=== PATIENT | female | born 1990 | race Caucasian/White ===

== ENCOUNTER 2016-07-15 10:54 | Emergency (ER) | payer MEDICAID ==
[~2016-07-15] VITALS: Ht 157.5 cm; Wt 72.1 kg
[~2016-07-15 10:54] MED LIST: LEVAQUIN750 MG PO
[2016-07-15 13:47] VITALS: BP 117/73
== END 2016-07-15 13:47 | disposition home or self-care (01) ==
LOC: ED 10:54
DX: K08.89 Other specified disorders of teeth and supporting structures (principal)
CPT/HCPCS: J1885; J2001; J3490

== ENCOUNTER 2016-09-07 10:02 | Emergency (ER) | payer MEDICAID ==
[~2016-09-07] VITALS: Ht 162.6 cm; Wt 69.0 kg
[2016-09-07 11:45] LABS: BASOPHIL % 0.4 % (0-2); RED CELL DISTRIBUTION WIDTH 12.7 % (11.5-14.5)
[2016-09-07 11:47] LABS: PLATELET COUNT 125 x10^3mcL (130-400)
[2016-09-07 12:09] LABS: ALBUMIN 4.1 g/dL (3.4-5.0); ALKALINE PHOSPHATASE 58 U/L (46-116); ALT/SGPT 36 U/L (14-59); AMYLASE 71 U/L (25-115); AST/SGOT 26 U/L (15-37); BILIRUBIN TOTAL 0.67 mg/dL (0.20-1.00); CALCIUM 9.2 mg/dL (8.5-10.1); CARBON DIOXIDE 28.6 mmol/L (21-32); CHLORIDE SERUM 105 mmol/L (98-107); CREATININE SERUM 0.6 mg/dL (0.6-1.0); GFR1 > 60 mL/min; GLUCOSE SERUM 90 mg/dL (74-106); LIPASE 157 IU/L (73-393); POTASSIUM SERUM 3.8 mmol/L (3.5-5.1); SODIUM SERUM 140 mmol/L (136-145); TOTAL PROTEIN, SERUM 8.2 g/dL (6.4-8.2)
[2016-09-07 15:40] VITALS: BP 121/74
== END 2016-09-07 15:40 | disposition home or self-care (01) ==
LOC: ED 10:02
PROVIDERS: Emergency Medicine
DX: R10.2 Pelvic and perineal pain (principal); R10.31 Right lower quadrant pain; R10.32 Left lower quadrant pain; R11.0 Nausea; R19.7 Diarrhea, unspecified
CPT/HCPCS: 83880; Q0162

== ENCOUNTER 2016-09-16 23:22 | Emergency (ER) | payer MEDICAID ==
[2016-09-16 23:57] LABS: BASOPHIL % 0.2 % (0-2)
[2016-09-16 23:59] LABS: PLATELET COUNT 112 x10^3mcL (130-400)
[2016-09-17 00:05] LABS: ALBUMIN 3.4 g/dL (3.4-5.0); ALKALINE PHOSPHATASE 57 U/L (46-116); ALT/SGPT 40 U/L (14-59); AST/SGOT 30 U/L (15-37); BILIRUBIN TOTAL 0.4 mg/dL (0.20-1.00); CALCIUM 8.1 mg/dL (8.5-10.1); CARBON DIOXIDE 25.9 mmol/L (21-32); CHLORIDE SERUM 105 mmol/L (98-107); CREATININE SERUM 0.7 mg/dL (0.6-1.0); GFR1 > 60 mL/min; GLUCOSE SERUM 90 mg/dL (74-106); POTASSIUM SERUM 3.6 mmol/L (3.5-5.1); SODIUM SERUM 141 mmol/L (136-145); TOTAL PROTEIN, SERUM 7.3 g/dL (6.4-8.2)
[2016-09-17 03:13] VITALS: BP 99/53
== END 2016-09-17 03:13 | disposition home or self-care (01) ==
LOC: ED 23:22
PROVIDERS: Specialist
DX: R07.89 Other chest pain (principal); D69.6 Thrombocytopenia, unspecified; D64.9 Anemia, unspecified; Z90.49 Acquired absence of other specified parts of digestive tract
CPT/HCPCS: 83880; J1885; J2060; Q0092

== ENCOUNTER 2016-09-20 18:56 | Emergency (ER) | payer MEDICAID ==
[~2016-09-20] VITALS: Ht 165.1 cm; Wt 70.8 kg
[2016-09-20 19:42] LABS: BASOPHIL % 0.4 % (0-2); PLATELET COUNT 110 x10^3mcL (130-400); RED CELL DISTRIBUTION WIDTH 12.8 % (11.5-14.5)
[2016-09-20 19:51] LABS: CALCIUM 8.7 mg/dL (8.5-10.1); CARBON DIOXIDE 25.6 mmol/L (21-32); CHLORIDE SERUM 106 mmol/L (98-107); CREATININE SERUM 0.8 mg/dL (0.6-1.0); GFR1 > 60 mL/min; GLUCOSE SERUM 96 mg/dL (74-106); POTASSIUM SERUM 3.9 mmol/L (3.5-5.1); SODIUM SERUM 141 mmol/L (136-145)
[2016-09-20 19:57] LABS: ALBUMIN 3.4 g/dL (3.4-5.0); ALKALINE PHOSPHATASE 58 U/L (46-116); ALT/SGPT 49 U/L (14-59); AST/SGOT 32 U/L (15-37); BILIRUBIN TOTAL 0.34 mg/dL (0.20-1.00); TOTAL PROTEIN, SERUM 7.6 g/dL (6.4-8.2)
[2016-09-20 20:31] LABS: AMPHETAMINE QUAL UR NONE DETECTED (NEG <=1000)
[2016-09-20 22:52] VITALS: BP 116/86
== END 2016-09-20 22:52 | disposition home or self-care (01) ==
LOC: ED 18:56
PROVIDERS: Emergency Medicine
DX: R07.89 Other chest pain (principal); F43.9 Reaction to severe stress, unspecified; F41.9 Anxiety disorder, unspecified
CPT/HCPCS: 83880; J1885; J2060; J7030; Q0092

== ENCOUNTER 2016-10-04 02:12 | Emergency (ER) | payer MEDICAID ==
[2016-10-04 04:01] LABS: BASOPHIL % 0.4 % (0-2); PLATELET COUNT 161 x10^3mcL (130-400); RED CELL DISTRIBUTION WIDTH 12.4 % (11.5-14.5)
[2016-10-04 04:04] LABS: CALCIUM 8.5 mg/dL (8.5-10.1); CARBON DIOXIDE 24.4 mmol/L (21-32); CHLORIDE SERUM 106 mmol/L (98-107); CREATININE SERUM 0.6 mg/dL (0.6-1.0); GFR1 > 60 mL/min; GLUCOSE SERUM 86 mg/dL (74-106); POTASSIUM SERUM 3.7 mmol/L (3.5-5.1); SODIUM SERUM 140 mmol/L (136-145)
[2016-10-04 04:09] LABS: ALKALINE PHOSPHATASE 62 U/L (46-116); ALT/SGPT 203 U/L (14-59); AST/SGOT 139 U/L (15-37); BILIRUBIN TOTAL 0.43 mg/dL (0.20-1.00); C REACTIVE PROTEIN 4.5 mg/dL (<=0.9); TOTAL PROTEIN, SERUM 7.6 g/dL (6.4-8.2)
[2016-10-04 04:14] LABS: ALBUMIN 3.3 g/dL (3.4-5.0)
[2016-10-04 05:05] VITALS: BP 107/69
== END 2016-10-04 05:05 | disposition home or self-care (01) ==
LOC: ED 02:12
PROVIDERS: Emergency Medicine
DX: M15.9 Polyosteoarthritis, unspecified (principal); R79.82 Elevated C-reactive protein (CRP); F41.9 Anxiety disorder, unspecified; Z79.1 Long term (current) use of non-steroidal anti-inflammatories (NSAID)
CPT/HCPCS: 36415; J1885

== ENCOUNTER 2016-12-17 23:11 | Emergency (ER) | payer MEDICAID ==
[2016-12-18 01:12] VITALS: BP 120/84
== END 2016-12-18 01:12 | disposition home or self-care (01) ==
LOC: ED 23:11
DX: J98.01 Acute bronchospasm (principal); J40 Bronchitis, not specified as acute or chronic; Z90.49 Acquired absence of other specified parts of digestive tract
CPT/HCPCS: J1885; J7512; J7613; J7644; Q0092

== ENCOUNTER 2017-03-25 18:55 | Emergency (ER) | payer MEDICAID ==
[~2017-03-25] VITALS: Ht 154.9 cm; Wt 67.1 kg
[2017-03-25 20:50] LABS: BASOPHIL % 0.4 % (0-2); PLATELET COUNT 131 x10^3mcL (130-400); RED CELL DISTRIBUTION WIDTH 12.5 % (11.5-14.5)
[2017-03-25 21:05] LABS: ALBUMIN 3.4 g/dL (3.4-5.0); ALKALINE PHOSPHATASE 73 U/L (46-116); ALT/SGPT 37 U/L (14-59); AST/SGOT 30 U/L (15-37); BILIRUBIN TOTAL 0.32 mg/dL (0.20-1.00); CALCIUM 8.6 mg/dL (8.5-10.1); CARBON DIOXIDE 29.2 mmol/L (21-32); CHLORIDE SERUM 107 mmol/L (98-107); CREATININE SERUM 0.5 mg/dL (0.6-1.0); GFR1 > 60 mL/min; GLUCOSE SERUM 97 mg/dL (74-106); LIPASE 202 IU/L (73-393); POTASSIUM SERUM 3.4 mmol/L (3.5-5.1); SODIUM SERUM 141 mmol/L (136-145); TOTAL PROTEIN, SERUM 7.3 g/dL (6.4-8.2)
[2017-03-25 21:45] VITALS: BP 121/42
== END 2017-03-25 21:45 | disposition home or self-care (01) ==
LOC: ED 18:55
PROVIDERS: Emergency Medicine Emergency Medical Services
DX: K52.9 Noninfective gastroenteritis and colitis, unspecified (principal)
CPT/HCPCS: J2405; J3490; Q0092

== ENCOUNTER 2017-07-13 06:12 | Inpatient (IN) | payer MEDICAID ==
[~2017-07-13] VITALS: Ht 154.9 cm; Wt 67.3 kg
[2017-07-13 06:29] VITALS: Ht 154.9 cm; Wt 67.3 kg
[2017-07-13 07:37] LABS: BASOPHIL % 0.3 % (0-2); RED CELL DISTRIBUTION WIDTH 12.3 % (11.5-14.5)
[2017-07-13 07:40] LABS: PLATELET COUNT 126 x10^3mcL (130-400)
[2017-07-13 07:47] LABS: CALCIUM 8.6 mg/dL (8.5-10.1); CARBON DIOXIDE 25.2 mmol/L (21-32); CHLORIDE SERUM 107 mmol/L (98-107); CREATININE SERUM 0.5 mg/dL (0.6-1.0); GFR1 > 60 mL/min; GLUCOSE SERUM 89 mg/dL (74-106); POTASSIUM SERUM 4.2 mmol/L (3.5-5.1); SODIUM SERUM 141 mmol/L (136-145)
[2017-07-13 07:52] LABS: ALBUMIN 3.8 g/dL (3.4-5.0); ALKALINE PHOSPHATASE 59 U/L (46-116); ALT/SGPT 29 U/L (14-59); AST/SGOT 24 U/L (15-37); BILIRUBIN TOTAL 0.32 mg/dL (0.20-1.00); TOTAL PROTEIN, SERUM 7.8 g/dL (6.4-8.2)
[2017-07-13 09:05] LABS: microscopic required? YES; urine erythrocyte 1+ (NEGATIVE)
[2017-07-13 09:23] LABS: T3 TOTAL 1.26 ng/mL
[2017-07-13 09:24] LABS: AMPHETAMINE QUAL UR NONE DETECTED (NEG <=1000)
[2017-07-13 09:24] LABS: PHOSPHOROUS 4.1 mg/dL (2.5-4.9)
[2017-07-13 09:26] LABS: CHOLESTEROL/HDL RATIO 2.4
[2017-07-13 09:30] LABS: FREE T4 1.1 ng/dL (0.76-1.46); FREE THYROXINE INDEX 2.7 ug/dL (1.4-4.5); T4(THYROXINE) 9.5 ug/dL (4.7-13.3)
[2017-07-13 10:12] VITALS: BP 115/70
[2017-07-13 17:38] VITALS: BP 94/64
[2017-07-13 19:45] VITALS: BP 100/62
[2017-07-13 21:10] VITALS: BP 100/60
[2017-07-13 21:55] VITALS: BP 99/55
[2017-07-14 05:28] VITALS: BP 98/55
[2017-07-14 06:07] LABS: BASOPHIL % 0.4 % (0-2); RED CELL DISTRIBUTION WIDTH 13.1 % (11.5-14.5)
[2017-07-14 06:37] LABS: CALCIUM 8.5 mg/dL (8.5-10.1); CARBON DIOXIDE 23.9 mmol/L (21-32); CHLORIDE SERUM 108 mmol/L (98-107); CREATININE SERUM 0.6 mg/dL (0.6-1.0); GFR1 > 60 mL/min; GLUCOSE SERUM 85 mg/dL (74-106); SODIUM SERUM 138 mmol/L (136-145)
[2017-07-14 06:43] LABS: PLATELET COUNT 123 x10^3mcL (130-400)
[2017-07-14 09:05] VITALS: BP 105/52
[2017-07-14] MEDS ORDERED: BACTRIM DS1 TAB PO ×2 (12:08→14:52)
[2017-07-14 12:11] VITALS: BP 105/52
[2017-07-14 13:00] VITALS: BP 91/47
[2017-07-14] MEDS ORDERED: LAC PO (14:43)
== END 2017-07-14 15:40 | disposition home or self-care (01) | DRG 201 ==
LOC: ED 06:12 → DU 08:17
PROVIDERS: Family Medicine; Specialist
DX: I44.1 Atrioventricular block, second degree (principal); E87.8 Other disorders of electrolyte and fluid balance, not elsewhere classified; D69.6 Thrombocytopenia, unspecified; M94.0 Chondrocostal junction syndrome [Tietze]; F41.9 Anxiety disorder, unspecified; I07.1 Rheumatic tricuspid insufficiency; N39.0 Urinary tract infection, site not specified; I37.1 Nonrheumatic pulmonary valve insufficiency; Z83.3 Family history of diabetes mellitus
CPT/HCPCS: 83880; 84439; J0696; J1885; J7040; Q0092

== ENCOUNTER 2017-11-18 20:30 | Inpatient (IN) | payer MEDICAID ==
[~2017-11-18] VITALS: Ht 157.5 cm; Wt 69.5 kg
[~2017-11-18 20:30] MED LIST changes: +BACTRIM DS1 TAB PO; +LAC PO
[2017-11-18 20:55] VITALS: Ht 157.5 cm; Wt 69.5 kg
[2017-11-18 22:52] LABS: BASOPHIL % 0.3 % (0-2); RED CELL DISTRIBUTION WIDTH 11.8 % (11.5-14.5)
[2017-11-18 22:55] LABS: PLATELET COUNT 128 x10^3mcL (130-400)
[2017-11-18 23:04] LABS: CARBON DIOXIDE 27.9 mmol/L (21-32); CHLORIDE SERUM 106 mmol/L (98-107); CREATININE SERUM 0.6 mg/dL (0.6-1.0); GFR1 > 60 mL/min; GLUCOSE SERUM 82 mg/dL (74-106); POTASSIUM SERUM 3.8 mmol/L (3.5-5.1); SODIUM SERUM 140 mmol/L (136-145)
[2017-11-18 23:18] LABS: ALBUMIN 3.8 g/dL (3.4-5.0); ALKALINE PHOSPHATASE 67 U/L (46-116); ALT/SGPT 30 U/L (14-59); AST/SGOT 24 U/L (15-37); BILIRUBIN TOTAL 0.4 mg/dL (0.20-1.00); FREE T4 1.02 ng/dL (0.76-1.46); TOTAL PROTEIN, SERUM 7.7 g/dL (6.4-8.2)
[2017-11-19 00:14] LABS: UA SPECIFIC GRAVITY >=1.030 (1.005-1.035); microscopic required? YES; urine erythrocyte 1+ (NEGATIVE)
[2017-11-19 00:50] LABS: AMPHETAMINE QUAL UR NONE DETECTED (See below)
[2017-11-19 04:35] VITALS: BP 104/40
[2017-11-19 04:42] LABS: MAGNESIUM 1.9 mg/dL (1.8-2.4); PHOSPHOROUS 4.2 mg/dL (2.5-4.9)
[2017-11-19 09:42] VITALS: BP 122/68
[2017-11-19 10:22] VITALS: BP 122/68
[2017-11-19 13:32] VITALS: BP 118/64
[2017-11-19 17:30] VITALS: BP 110/62
[2017-11-19 21:51] VITALS: BP 116/71
[2017-11-20 03:00] VITALS: BP 118/64
== END 2017-11-20 05:12 | disposition short-term general hospital (02) | DRG 201 ==
LOC: ED 20:30 → DU 11-19 02:46 → EDBEDREQ 11-19 03:05 → DU 11-19 04:13
PROVIDERS: Emergency Medicine; Family Medicine
DX: I44.1 Atrioventricular block, second degree (principal); D69.6 Thrombocytopenia, unspecified; R00.1 Bradycardia, unspecified; N39.0 Urinary tract infection, site not specified; R31.9 Hematuria, unspecified; Z68.26 Body mass index [BMI] 26.0-26.9, adult
CPT/HCPCS: 83880; 84439; C9113; J0461; J0696; J7030; Q0092

== ENCOUNTER 2018-02-16 20:16 | Emergency (ER) | payer MEDICAID ==
[~2018-02-16] VITALS: Ht 157.5 cm; Wt 67.1 kg
[2018-02-16 20:20] VITALS: Ht 157.5 cm; Wt 67.1 kg
[2018-02-16 21:16] VITALS: BP 112/62
== END 2018-02-16 21:16 | disposition home or self-care (01) ==
LOC: ED 20:16
DX: K21.9 Gastro-esophageal reflux disease without esophagitis (principal); F41.9 Anxiety disorder, unspecified; Z86.2 Personal history of diseases of the blood and blood-forming organs and certain disorders involving the immune mechanism; Z90.49 Acquired absence of other specified parts of digestive tract
CPT/HCPCS: Q0162

== ENCOUNTER 2018-03-17 20:03 | Emergency (ER) | payer MEDICAID ==
[~2018-03-17] VITALS: Ht 154.9 cm; Wt 67.6 kg
[2018-03-17 20:07] VITALS: Ht 154.9 cm; Wt 67.6 kg
[2018-03-17 23:10] VITALS: BP 102/61
== END 2018-03-17 23:10 | disposition home or self-care (01) ==
LOC: ED 20:03
DX: R51 Headache (principal); F41.9 Anxiety disorder, unspecified; Z90.49 Acquired absence of other specified parts of digestive tract; Z86.2 Personal history of diseases of the blood and blood-forming organs and certain disorders involving the immune mechanism
CPT/HCPCS: J1885; J8597; Q0163

== ENCOUNTER 2018-03-22 15:10 | Emergency (ER) | payer MEDICAID ==
[~2018-03-22] VITALS: Ht 154.9 cm; Wt 66.2 kg
[2018-03-22 15:25] VITALS: Ht 154.9 cm; Wt 66.2 kg
[2018-03-22 17:06] VITALS: BP 118/69
== END 2018-03-22 17:06 | disposition home or self-care (01) ==
LOC: ED 15:10
DX: R51 Headache (principal); F41.9 Anxiety disorder, unspecified; Z86.2 Personal history of diseases of the blood and blood-forming organs and certain disorders involving the immune mechanism
CPT/HCPCS: J0780; J1885

== ENCOUNTER 2018-04-05 08:43 | Emergency (ER) | payer MEDICAID ==
[~2018-04-05] VITALS: Ht 157.5 cm; Wt 66.7 kg
[2018-04-05 08:49] VITALS: Ht 157.5 cm; Wt 66.7 kg
[2018-04-05 09:45] VITALS: BP 106/70
== END 2018-04-05 09:45 | disposition home or self-care (01) ==
LOC: ED 08:43
DX: J06.9 Acute upper respiratory infection, unspecified (principal); F41.9 Anxiety disorder, unspecified; Z86.2 Personal history of diseases of the blood and blood-forming organs and certain disorders involving the immune mechanism; Z90.49 Acquired absence of other specified parts of digestive tract

== ENCOUNTER 2018-06-05 09:51 | Emergency (ER) | payer MEDICAID ==
[~2018-06-05] VITALS: Ht 157.5 cm; Wt 65.3 kg
[2018-06-05 09:58] VITALS: BP 104/71; Ht 157.5 cm; Wt 65.3 kg
== END 2018-06-05 10:57 | disposition home or self-care (01) ==
LOC: ED 09:51
DX: L25.9 Unspecified contact dermatitis, unspecified cause (principal); D64.9 Anemia, unspecified; F41.9 Anxiety disorder, unspecified; Z90.49 Acquired absence of other specified parts of digestive tract

== ENCOUNTER 2018-08-04 22:35 | Emergency (ER) | payer MEDICAID ==
[~2018-08-04] VITALS: Ht 157.5 cm; Wt 66.2 kg
[2018-08-04 22:39] VITALS: Ht 157.5 cm; Wt 66.2 kg
[2018-08-05 00:40] VITALS: BP 119/72
== END 2018-08-05 00:40 | disposition home or self-care (01) ==
LOC: ED 22:35
DX: R21 Rash and other nonspecific skin eruption (principal); D64.9 Anemia, unspecified; F41.9 Anxiety disorder, unspecified; Z90.49 Acquired absence of other specified parts of digestive tract
CPT/HCPCS: J7512; Q0163

== ENCOUNTER 2019-02-02 08:16 | Inpatient (IN) | payer MEDICAID ==
[~2019-02-02] VITALS: Ht 157.5 cm; Wt 66.2 kg
[2019-02-02 08:20] VITALS: Ht 157.5 cm; Wt 66.2 kg
[2019-02-02 09:03] LABS: BASOPHIL % 0.5 % (0-2); RED CELL DISTRIBUTION WIDTH 12.3 % (11.5-14.5)
[2019-02-02 09:06] LABS: PLATELET COUNT 117 x10^3mcL (130-400)
[2019-02-02 09:08] LABS: CALCIUM 8.4 mg/dL (8.5-10.1); CARBON DIOXIDE 26.9 mmol/L (21-32); CHLORIDE SERUM 106 mmol/L (98-107); CREATININE SERUM 0.5 mg/dL (0.6-1.0); GFR1 > 60 mL/min; GLUCOSE SERUM 87 mg/dL (74-106); POTASSIUM SERUM 4.2 mmol/L (3.5-5.1); SODIUM SERUM 141 mmol/L (136-145)
[2019-02-02 09:13] LABS: ALBUMIN 3.9 g/dL (3.4-5.0); ALKALINE PHOSPHATASE 68 U/L (46-116); ALT/SGPT 27 U/L (14-59); AST/SGOT 24 U/L (15-37); BILIRUBIN TOTAL 0.49 mg/dL (0.20-1.00); TOTAL PROTEIN, SERUM 7.5 g/dL (6.4-8.2)
[2019-02-02 09:20] LABS: FREE T4 0.92 ng/dL (0.76-1.46); FREE THYROXINE INDEX 2.7 ug/dL (1.4-4.5); T4(THYROXINE) 8.1 ug/dL (4.7-13.3)
[2019-02-02 09:38] LABS: AMPHETAMINE QUAL UR NONE DETECTED (See below)
[2019-02-02 10:05] LABS: T3 TOTAL 1.45 ng/mL
[2019-02-02 14:07] VITALS: BP 106/54
[2019-02-02 17:41] VITALS: BP 98/62
[2019-02-02 20:32] VITALS: BP 102/58
[2019-02-03 05:10] VITALS: BP 102/64
[2019-02-03 07:05] LABS: BASOPHIL % 0.3 % (0-2); RED CELL DISTRIBUTION WIDTH 12.4 % (11.5-14.5)
[2019-02-03 07:06] LABS: PLATELET COUNT 118 x10^3mcL (130-400)
[2019-02-03 07:31] LABS: CALCIUM 8.7 mg/dL (8.5-10.1); CHLORIDE SERUM 108 mmol/L (98-107); CREATININE SERUM 0.6 mg/dL (0.6-1.0); GFR1 > 60 mL/min; GLUCOSE SERUM 67 mg/dL (74-106); POTASSIUM SERUM 4.3 mmol/L (3.5-5.1); SODIUM SERUM 142 mmol/L (136-145)
[2019-02-03 08:45] VITALS: BP 95/54
[2019-02-03] MEDS ORDERED: GOOD SENSE OMEP20 MG PO (10:11)
[2019-02-03] MEDS ORDERED: ROBL PO (10:12)
[2019-02-03 10:22] VITALS: BP 95/54
[2019-02-03 11:56] VITALS: BP 97/49
== END 2019-02-03 13:41 | disposition home or self-care (01) | DRG 201 ==
LOC: ED 08:16 → DU 10:59
PROVIDERS: Emergency Medicine; ADMIT Internal Medicine
DX: I44.1 Atrioventricular block, second degree (principal); K20.9 Esophagitis, unspecified; R00.1 Bradycardia, unspecified; Z68.26 Body mass index [BMI] 26.0-26.9, adult
CPT/HCPCS: 84439; G0378; Q0092

== ENCOUNTER 2019-06-22 08:18 | Emergency (ER) | payer MEDICAID ==
[~2019-06-22] VITALS: Ht 157.5 cm; Wt 56.7 kg
[~2019-06-22 08:18] MED LIST changes: +GOOD SENSE OMEP20 MG PO; +ROBL PO
[2019-06-22 08:24] VITALS: BP 114/71; Ht 157.5 cm; Wt 56.7 kg
== END 2019-06-22 09:33 | disposition home or self-care (01) ==
LOC: ED 08:18
DX: B34.9 Viral infection, unspecified (principal); J11.1 Influenza due to unidentified influenza virus with other respiratory manifestations; Z86.2 Personal history of diseases of the blood and blood-forming organs and certain disorders involving the immune mechanism; Z90.49 Acquired absence of other specified parts of digestive tract

== ENCOUNTER 2019-12-18 07:55 | Emergency (ER) | payer MEDICAID ==
[~2019-12-18] VITALS: Ht 157.5 cm; Wt 66.2 kg
[2019-12-18 08:20] VITALS: Ht 157.5 cm; Wt 66.2 kg
[2019-12-18 09:26] VITALS: BP 118/76
== END 2019-12-18 09:26 | disposition home or self-care (01) ==
LOC: ED 07:55
DX: O26.891 Other specified pregnancy related conditions, first trimester (principal); R00.2 Palpitations; Z3A.01 Less than 8 weeks gestation of pregnancy

== ENCOUNTER 2020-01-27 16:50 | Emergency (ER) | payer MEDICAID ==
[~2020-01-27] VITALS: Ht 157.5 cm; Wt 69.4 kg
[2020-01-27 16:56] VITALS: Ht 157.5 cm; Wt 69.4 kg
[2020-01-27 17:49] LABS: UA SPECIFIC GRAVITY <=1.005 (1.005-1.035); microscopic required? YES; urine erythrocyte 1+ (NEGATIVE)
[2020-01-27 18:40] LABS: BASOPHIL % 0.2 % (0-2); PLATELET COUNT 140 x10^3mcL (130-400); RED CELL DISTRIBUTION WIDTH 12.9 % (11.5-14.5)
[2020-01-27 18:47] LABS: CALCIUM 9.1 mg/dL (8.5-10.1); CARBON DIOXIDE 26.7 mmol/L (21-32); CHLORIDE SERUM 101 mmol/L (98-107); CREATININE SERUM 0.5 mg/dL (0.6-1.0); GFR1 > 60 mL/min; GLUCOSE SERUM 88 mg/dL (74-106); SODIUM SERUM 136 mmol/L (136-145)
[2020-01-27 18:53] LABS: ALBUMIN 3.5 g/dL (3.4-5.0); ALKALINE PHOSPHATASE 59 U/L (46-116); ALT/SGPT 36 U/L (14-59); AST/SGOT 25 U/L (15-37); BILIRUBIN DIRECT 0.07 mg/dL (0.0-0.2); BILIRUBIN TOTAL 0.32 mg/dL (0.20-1.00); LIPASE 165 IU/L (73-393); TOTAL PROTEIN, SERUM 7.4 g/dL (6.4-8.2)
[2020-01-27 20:19] VITALS: BP 111/70
== END 2020-01-27 20:19 | disposition home or self-care (01) ==
LOC: ED 16:50
PROVIDERS: Emergency Medicine
DX: O26.891 Other specified pregnancy related conditions, first trimester (principal); R10.30 Lower abdominal pain, unspecified; Z3A.11 11 weeks gestation of pregnancy; Z90.49 Acquired absence of other specified parts of digestive tract